=== PATIENT | female | born 1985 | race Caucasian/White ===

== ENCOUNTER 2017-05-27 17:46 | Inpatient (IN) | payer MEDICAID ==
[~2017-05-27] VITALS: Ht 165.1 cm; Wt 96.9 kg
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
--- NOTE | 2017-05-27 22:08 | NUR ---
ADMIT Pt arrived to unit at 2014. She signed all paperwork and oriented to unit. Pt restless and confused on unit. Needed multiple redirection and orientation. Pt pacing and anxious/fearful in appearance. Noted having memory and orientation issues. In room restless at this time, attempting to lay down. Observed Q15 as ordered.
[2017-05-27] MEDS ORDERED: LORazepam 1 mg Tablet ONE (22:12)
[2017-05-27] MEDS ORDERED: cloNIDine 0.1 mg Tablet ONE (22:23)
[2017-05-27] MEDS ORDERED: Magnesium Hydroxide 10 mL Oral Concentration PO PRN (22:25)
[2017-05-27] MEDS ORDERED: LORazepam 1 mg Tablet PO PRN (22:25)
[2017-05-27] MEDS ORDERED: Benzocaine-Menthol Lozenge 2/Pkg PO PRN (22:25)
[2017-05-27] MEDS ORDERED: Alum-Mag Hydrox-Simeth 30 mL Suspension PO PRN (22:25)
[2017-05-27] MEDS ORDERED: .Epic Conversion Completed XX PRN (22:55)
[2017-05-27] MEDS ORDERED: MTH10T PO (23:10)
[2017-05-27] MEDS ORDERED: METH40TA2 PO (23:10)
[2017-05-27] MEDS ORDERED: GABA300C PO (23:10)
[2017-05-28] MEDS ORDERED: cloNIDine 0.1 mg Tablet PO SCH (08:30)
== END 2017-05-28 01:27 | disposition admitted as inpatient to this hospital (09) | DRG 951 ==
LOC: MHC 20:16
PROVIDERS: ADMIT Psychiatry & Neurology Psychiatry; ATTEND Psychiatry & Neurology Psychiatry
DX: R69 Illness, unspecified (principal)